=== PATIENT | female | born 1995 | race Caucasian/White ===

== ENCOUNTER 2018-03-31 21:24 | Emergency (ER) | payer MEDICAID ==
[~2018-03-31] VITALS: Ht 167.6 cm; Wt 118.0 kg
[~2018-03-31 21:24] MED LIST: DIVAL250 PO; PHEN100C4 PO; TOP100 PO
[2018-03-31 22:36] LABS: CLARITY URINE CLEAR (CLEAR); COLOR URINE YELLOW (YELLOW); KETONES URINE NEGATIVE (NEGATIVE); LEUKOCYTE ESTERASE URINE 2+ (NEGATIVE); NITRITE URINE NEGATIVE (NEGATIVE); OCCULT BLOOD URINE 3+ (NEGATIVE); PROTEIN URINE TRACE (NEGATIVE); SPECIFIC GRAVITY URINE 1.026 (1.005-1.030); UROBILINOGEN URINE 0.2 E.U./dL (0.2-1.0)
[2018-04-01 03:00] VITALS: BP 109/62
== END 2018-04-01 03:14 | disposition home or self-care (01) ==
LOC: ER 21:24
DX: N39.0 Urinary tract infection, site not specified (principal); N64.4 Mastodynia; M79.1 Myalgia
CPT/HCPCS: 36415; 81003; 81025; 84702; 87077; 87086; 99284; Z7610

== ENCOUNTER 2018-04-18 21:40 | Emergency (ER) | payer MEDICAID ==
[~2018-04-18] VITALS: Ht 167.6 cm; Wt 104.0 kg
[2018-04-18 23:45] LABS: CLARITY URINE CLOUDY (CLEAR); COLOR URINE YELLOW (YELLOW); KETONES URINE TRACE (NEGATIVE); LEUKOCYTE ESTERASE URINE 1+ (NEGATIVE); NITRITE URINE NEGATIVE (NEGATIVE); OCCULT BLOOD URINE 2+ (NEGATIVE); PH URINE 6.5 (4.5-8.0); PROTEIN URINE TRACE (NEGATIVE); SPECIFIC GRAVITY URINE 1.027 (1.005-1.030)
[2018-04-19] MEDS ORDERED: ACETAMINOPHEN 500MG TABLET PO ONE
[2018-04-19 00:45] LABS: CHLORIDE 107 mEq/L (98-107)
[2018-04-19 00:49] LABS: HEMATOCRIT 39.2 % (36.0-48.0); HEMOGLOBIN 13.2 g/dL (12.0-16.0); MEAN CORPUSCULAR HEMOGLOBIN 30.4 pg (28.0-32.0); MEAN CORPUSCULAR VOLUME 90.5 fL (81.0-99.0); PLATELET 91 x1000/uL (130-400); RED BLOOD CELL COUNT 4.33 mill/uL (4.2-5.4)
[2018-04-19 00:58] LABS: B-HCG QUANTITATIVE < 1 mIU/mL (<3)
[2018-04-19] MEDS ORDERED: CEFTRIAXONE 1 G PREMIX 50 ML IV SCH (02:46)
[2018-04-19 03:41] VITALS: BP 102/54
== END 2018-04-19 03:43 | disposition home or self-care (01) ==
LOC: ER 23:19
DX: N39.0 Urinary tract infection, site not specified (principal); R56.9 Unspecified convulsions
CPT/HCPCS: 36415; 80053; 81003; 81025; 84702; 85027; 96365; 99284; J0696

== ENCOUNTER 2018-07-24 22:37 | Emergency (ER) | payer MEDICAID ==
[~2018-07-24] VITALS: Ht 172.7 cm; Wt 115.0 kg
[2018-07-24 23:57] LABS: CLARITY URINE CLEAR (CLEAR); COLOR URINE YELLOW (YELLOW); KETONES URINE NEGATIVE (NEGATIVE); LEUKOCYTE ESTERASE URINE NEGATIVE (NEGATIVE); NITRITE URINE NEGATIVE (NEGATIVE); OCCULT BLOOD URINE 2+ (NEGATIVE); PH URINE 5.5 (4.5-8.0); PROTEIN URINE TRACE (NEGATIVE); SPECIFIC GRAVITY URINE 1.018 (1.005-1.030); UROBILINOGEN URINE 0.2 E.U./dL (0.2-1.0)
[2018-07-25] MEDS ORDERED: ACETAMINOPHEN 325MG TABLET PO STA (07:19)
[2018-07-25] MEDS ORDERED: SODIUM CHLORIDE 0.9% 1,000 ML IV ONE (07:19)
[2018-07-25] MEDS ORDERED: ONDANSETRON HCL 4MG/2ML INJ IV STA (07:19)
[2018-07-25 08:01] LABS: BASOPHILS % 0.4 % (0.0-2.0); HEMATOCRIT. 39.6 % (36.0-48.0); HEMOGLOBIN. 13.5 g/dL (12.0-16.0); LYMPHOCYTES % 22.4 % (20.0-50.0); MEAN CORPUSCULAR HEMOGLOBIN 31.4 pg (28.0-32.0); MEAN CORPUSCULAR VOLUME 91.9 fL (81.0-99.0); MEAN PLATELET VOLUME 8.2 fl (7.4-10.4); MONOCYTES % 7.6 % (2.0-8.0); NEUTROPHILS % 69.6 % (40.0-76.0); PLATELET 235 x1000/uL (130-400); RED BLOOD CELL COUNT 4.31 mill/uL (4.2-5.4); RED CELL DISTRIBUTION WIDTH 13.6 % (11.6-14.6)
[2018-07-25 08:05] LABS: CHLORIDE 105 mEq/L (98-107)
[2018-07-25 08:08] LABS: PROTHROMBIN TIME 9.9 sec (9.1-11.1)
[2018-07-25 08:15] LABS: B-HCG QUANTITATIVE 175 mIU/mL (<3)
[2018-07-25 10:05] VITALS: BP 122/70
== END 2018-07-25 10:24 | disposition home or self-care (01) ==
LOC: ER 07-25 07:15
DX: O26.891 Other specified pregnancy related conditions, first trimester (principal); R93.89 Abnormal findings on diagnostic imaging of other specified body structures; E86.0 Dehydration; O21.9 Vomiting of pregnancy, unspecified; R10.0 Acute abdomen; R31.9 Hematuria, unspecified; D72.829 Elevated white blood cell count, unspecified; Z3A.01 Less than 8 weeks gestation of pregnancy
CPT/HCPCS: 36415; 76801; 76817; 80053; 81003; 81025; 83690; 84702; 85025; 85610; 96361; 96374; 99284; J2405; J7030

== ENCOUNTER 2021-02-27 12:59 | Emergency (ER) | payer MEDICAID ==
[~2021-02-27] VITALS: Ht 167.6 cm; Wt 131.0 kg
[2021-02-27] MEDS ORDERED: ONDANSETRON 4MG ODT PO ONE (15:45)
[2021-02-27] MEDS ORDERED: HYDROCODONE/ACETAMINOPHEN 5/325MG TABLET PO ONE (15:45)
[2021-02-27] MEDS ORDERED: CIPHCO EACH EAR (15:59)
[2021-02-27] MEDS ORDERED: IBUP-2030 MT (15:59)
[2021-02-27] MEDS ORDERED: AMOX-424 MT (15:59)
[2021-02-27] MEDS ORDERED: HYDR-4346 MT (15:59)
[2021-02-27 16:20] VITALS: BP 123/75
== END 2021-02-27 16:21 | disposition home or self-care (01) ==
LOC: ER 12:59
DX: H66.93 Otitis media, unspecified, bilateral (principal); H60.503 Unspecified acute noninfective otitis externa, bilateral; R03.0 Elevated blood-pressure reading, without diagnosis of hypertension
CPT/HCPCS: 99283; Q0162